=== PATIENT | female | born 1945 | race Caucasian/White ===

== ENCOUNTER → 2018-01-23 | Outpatient (CLI) | payer MEDICARE | LOC: LAB 11:16 | DX: E55.9 Vitamin D deficiency, unspecified (principal) ==

== ENCOUNTER → 2018-07-09 | Outpatient (CLI) | payer MEDICARE | LOC: LAB 10:36 | DX: E55.9 Vitamin D deficiency, unspecified (principal) ==

== ENCOUNTER → 2019-01-22 | Outpatient (CLI) | payer MEDICARE ==
[2019-01-22 10:44] LABS: BASO # 0.1 (0.02-0.10); EOS # 0.6 (0.04-0.40); EOS % 5.1 % (1.0-5.0); HEMATOCRIT 43.1 % (37.0-47.0); HEMOGLOBIN 13.7 g/dL (12.5-16.0); LYMPH# 2.2 (1.50-4.00); MEAN CELL VOLUME 89 fl (78-100); MEAN CORPUSCULAR HEMOGLOBIN 28 pg (27-31); MEAN CORPUSCULAR HGB CONC 32 g/dL (33-37); MEAN PLATELET VOLUME 10.9 fl (7.4-10.4); MONO # 0.9 (0.20-0.80); NEU # 7.1 (1.40-6.50); PLATELET COUNT 303 K/mm3 (130-400); RED BLOOD COUNT 4.84 M/mm3 (4.10-5.30); RED CELL DISTRIBUTION WIDTH 13.2 % (11.5-14.5); WHITE BLOOD COUNT 10.8 K/mm3 (4.8-10.8)
[2019-01-22 10:49] LABS: ALBUMIN 4.3 g/dL (3.4-4.8); POTASSIUM 3.8 mmol/L (3.5-5.1)
[2019-01-22 10:50] LABS: CALCIUM 10.6 mg/dL (8.3-10.5)
[2019-01-22 10:51] LABS: TOTAL PROTEIN 7.3 g/dL (6.2-8.1)
[2019-01-22 10:53] LABS: TOTAL BILIRUBIN 0.5 mg/dL (0.2-1.2)
== END ==
LOC: LAB 10:28
PROVIDERS: Family Medicine
DX: Z00.00 Encounter for general adult medical examination without abnormal findings (principal); E78.5 Hyperlipidemia, unspecified; E55.9 Vitamin D deficiency, unspecified

== ENCOUNTER → 2021-09-20 | Outpatient (CLI) | payer MEDICARE ==
[2021-09-20 11:21] LABS: BASO # 0.06 K/mm3 (0.02-0.10); EOS # 0.55 K/mm3 (0.04-0.40); EOS % 4.6 % (1.0-5.0); HEMATOCRIT 42.1 % (37.0-47.0); HEMOGLOBIN 13.7 g/dL (12.5-16.0); LYMPH# 2.43 K/mm3 (1.50-4.00); MEAN CELL VOLUME 90 fl (78-100); MEAN CORPUSCULAR HEMOGLOBIN 29 pg (27-31); MEAN CORPUSCULAR HGB CONC 33 g/dL (33-37); MEAN PLATELET VOLUME 10.8 fl (7.4-10.4); MONO # 0.85 K/mm3 (0.20-0.80); NEU # 7.93 K/mm3 (1.40-6.50); PLATELET COUNT 304 K/mm3 (130-400); RED BLOOD COUNT 4.67 M/mm3 (4.10-5.30); RED CELL DISTRIBUTION WIDTH 12.7 % (11.5-14.5); WHITE BLOOD COUNT 11.9 K/mm3 (4.8-10.8)
[2021-09-20 11:43] LABS: ALBUMIN 4.4 g/dL (3.4-4.8); POTASSIUM 4.4 mmol/L (3.5-5.1)
[2021-09-20 11:44] LABS: CALCIUM 10.7 mg/dL (8.3-10.5)
[2021-09-20 11:46] LABS: TOTAL PROTEIN 7.3 g/dL (6.2-8.1)
[2021-09-20 11:47] LABS: TOTAL BILIRUBIN 0.6 mg/dL (0.2-1.2)
== END ==
LOC: LAB 10:53
PROVIDERS: Family Medicine
DX: Z00.00 Encounter for general adult medical examination without abnormal findings (principal); Z12.31 Encounter for screening mammogram for malignant neoplasm of breast; E78.5 Hyperlipidemia, unspecified; E55.9 Vitamin D deficiency, unspecified; I10 Essential (primary) hypertension; F32.A Depression, unspecified; E66.9 Obesity, unspecified

== ENCOUNTER → 2022-04-22 | Outpatient (CLI) | payer MEDICARE ==
[2022-04-22 11:50] LABS: BASO # 0.04 K/mm3 (0.02-0.10); EOS # 0.47 K/mm3 (0.04-0.40); EOS % 4.7 % (1.0-5.0); HEMATOCRIT 42.5 % (37.0-47.0); HEMOGLOBIN 13.9 g/dL (12.5-16.0); LYMPH# 2.01 K/mm3 (1.50-4.00); MEAN CELL VOLUME 91 fl (78-100); MEAN CORPUSCULAR HEMOGLOBIN 30 pg (27-31); MEAN CORPUSCULAR HGB CONC 33 g/dL (33-37); MEAN PLATELET VOLUME 11.2 fl (7.4-10.4); MONO # 0.71 K/mm3 (0.20-0.80); NEU # 6.66 K/mm3 (1.40-6.50); PLATELET COUNT 293 K/mm3 (130-400); RED BLOOD COUNT 4.67 M/mm3 (4.10-5.30); RED CELL DISTRIBUTION WIDTH 12.5 % (11.5-14.5); WHITE BLOOD COUNT 9.9 K/mm3 (4.8-10.8)
[2022-04-22 11:55] LABS: ALBUMIN 4.3 g/dL (3.4-4.8)
[2022-04-22 11:56] LABS: CALCIUM 10.6 mg/dL (8.3-10.5)
[2022-04-22 11:58] LABS: TOTAL PROTEIN 7.1 g/dL (6.2-8.1)
[2022-04-22 11:59] LABS: TOTAL BILIRUBIN 0.7 mg/dL (0.2-1.2)
== END ==
LOC: LAB 11:05
PROVIDERS: Family Medicine
DX: Z00.00 Encounter for general adult medical examination without abnormal findings (principal); E78.5 Hyperlipidemia, unspecified; E55.9 Vitamin D deficiency, unspecified

== ENCOUNTER 2024-03-25 21:40 | Emergency (ER) | payer MEDICARE ==
[~2024-03-25] VITALS: Wt 99.1 kg
[2024-03-25] MEDS ORDERED: PAROXETINE CR25 MG PO (22:04)
[2024-03-25] MEDS ORDERED: HCTZ 25MG25 MG PO (22:04)
[2024-03-25] MEDS ORDERED: LISINOPRIL40 MG PO (22:04)
[2024-03-25] MEDS ORDERED: ATORVASTATIN CA20 MG (22:05)
[2024-03-25 22:30] VITALS: BP 180/79
== END 2024-03-25 22:30 | disposition home or self-care (01) ==
LOC: ED 21:40
DX: S30.91XA Unspecified superficial injury of lower back and pelvis, initial encounter (principal); X58.XXXA Exposure to other specified factors, initial encounter